=== PATIENT | male | born 1995 | race Caucasian/White ===

== ENCOUNTER 2016-05-31 02:07 | Emergency (ER) | payer OTHER ==
--- NOTE | 2016-05-31 02:52 | ED ---
Mariely Vaughan Janilya, scribed for Jeyson Mai MD on 05/31/16 at 0216 . Substance Abuse/Use - HPI Summary HPI Summary: A 21 y/o male was BIBA for EtOH abuse. According to pt, he had more than normal amount of alcohol, approx 6 servings of vodka and other hard liquor. Pt is nauseous and has vomited. - History Of Current Complaint Stated Complaint: ETOH Hx Obtained From: Patient Ingestion History: Type/Name Of Drug - EtOH, Amount Ingested - 6 servings of liquor Overdose Characteristics: Oral Timing Of Abuse: Binge Use Severity Initially: Moderate Severity Currently: Moderate Aggravating Factor(s): Nothing Alleviating Factor(s): Nothing Associated Signs And Symptoms: Nausea, Vomiting - Allergies/Home Medications Allergies/Adverse Reactions: Allergies Allergy/AdvReac Type Severity Reaction Status Date / Time No Known Allergies Allergy Verified 01/15/16 20:31 PMH/Surg Hx/FS Hx/Imm Hx Previously Healthy: Yes Endocrine/Hematology History: Denies: Hx Anticoagulant Therapy, Hx Diabetes, Hx Thyroid Disease Cardiovascular History: Denies: Hx Congestive Heart Failure, Hx Deep Vein Thrombosis, Hx Hypertension , Hx Myocardial Infarction, Hx Pacemaker/ICD Respiratory History: Denies: Hx Asthma, Hx Chronic Obstructive Pulmonary Disease (COPD), Hx Lung Cancer, Hx Pneumonia, Hx Pulmonary Embolism GI History: Denies: Hx Gall Bladder Disease, Hx Gastrointestinal Bleed, Hx Ulcer, Hx Urosepsis History: Denies: Hx Kidney Stones, Hx Renal Disease Neurological History: Denies: Hx Dementia, Hx Migraine, Hx Seizures, Hx Transient Ischemic Attacks (TIA) Psychiatric History: Denies: Hx Anxiety, Hx Depression, Hx Schizophrenia, Hx Bipolar Disorder - Surgical History Surgery Procedure, Year, and Place: LEFT big toe fracture - Family History Known Family History: Positive: Hypertension Negative: Cardiac Disease - Social History Occupation: Student - [place] Lives: Alone Alcohol Use: Weekly Substance Use Type: Reports: None Substance Use Comment - Amount & Last Used: unknown Smoking Status (MU): Never Smoked Tobacco Review of Systems Negative: Fever Positive: Vomiting, Nausea All Other Systems Reviewed And Are Negative: Yes Physical Exam Triage Information Reviewed: Yes Vital Signs Reviewed: Yes Appearance: Positive: Well-Appearing, No Pain Distress - aob Skin: Positive: Warm Head/Face: Positive: Normal Head/Face Inspection Eyes: Positive: USMAN ENT: Positive: Hearing grossly normal Neck: Positive: Supple Respiratory/Lung Sounds: Positive: Clear to Auscultation, Breath Sounds Present Cardiovascular: Positive: Normal Abdomen Description: Positive: Nontender, Soft Bowel Sounds: Positive: Present Musculoskeletal: Positive: Strength/ROM Intact Psychiatric: Positive: Normal Re-Evaluation - Re-Evaluation First Eval Change: Improved Course/Dx - Diagnoses Provider Diagnoses: Alcohol intoxication Discharge - Discharge Plan Condition: Improved Disposition: HOME Patient Education Materials: Alcohol Intoxication (ED) Referrals: [facility] LEYSIA Matos [Primary Care Provider] - Additional Instructions: Follow up with your primary care provider. The documentation as recorded by the Mariely allred Janilya accurately reflects the service I personally performed and the decisions made by , Jeyson Mai MD.
[2016-05-31 07:03] VITALS: BP 124/72
== END 2016-05-31 07:01 | disposition home or self-care (01) ==
LOC: ED 02:07
DX: F10.129 Alcohol abuse with intoxication, unspecified (principal); R11.2 Nausea with vomiting, unspecified
CPT/HCPCS: 36415; 80320; 99282; G0480